=== PATIENT | female | born 2000 | race Caucasian/White ===

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

== ENCOUNTER → 2019-03-22 | Outpatient (CLI) | payer BC ==
[~2019-03-22] MED LIST: CITA-145 PO; ONDA4TAB97 PO
--- NOTE | 2019-03-22 17:01 | RADIOLOGY IMAGING REPORT ---
FACILITY: [facility] - [place] PATIENT NAME: KAT LING : [id number] MR: [id number] V: [id number] EXAM DATE: ORDERING PHYSICIAN: GWYN DICKENS TECHNOLOGIST: Candice Arriola RDMS(ABD,OBGYN,BR),RVT PROCEDURE:US LEFT BREAST COMPARISON:None. INDICATIONS:UNSPECIFIED LUMP IN LEFT BREAST AREA SCANNED: The 12 - 6 o'clock portions of the Left breast. FINDINGS: There was no demonstration of focal mass either cystic or solid within the scanned portion of the Left breast & no evidence of acoustic shadowing. Clinical follow up recommended for patient's palpable finings in the 2 o'clock position of the Left breast. DIAGNOSTIC CATEGORY 1--NEGATIVE. RECOMMENDATIONS: CLINICAL EVALUATION. IMPRESSION: BIRADS 1: Negative. Clinical follow up recommended for patient's palpable findings in the 2 o'clock position of the Left breast. Dictated by: Tamia King M.D. on 03/22/2019 at 14:16 Transcribed by: FLORENCIO on 03/22/2019 at 14:23 Approved by: Tamia King M.D. on 03/22/2019 at 16:58 [facility]
== END ==
LOC: US 01:25
DX: N63.20 Unspecified lump in the left breast, unspecified quadrant (principal)